=== PATIENT | female | born 1970 | race Caucasian/White ===

== ENCOUNTER → 2016-05-25 | Outpatient (CLI) | payer BC ==
[~2016-05-25] MED LIST: CLR10 PO; MULT-506 PO
--- NOTE | 2016-05-25 16:30 | MAMMOGRAPHY REPORT ---
BILATERAL DIGITAL DIAGNOSTIC MAMMOGRAM TOMOSYNTHESIS WITH CAD: 05/25/2016 CLINICAL HISTORY: 45-year-old woman presents for follow-up in both breasts of probably benign asymme tries identified on the 12/01/2015 exam. TECHNIQUE: Bilateral breast tomosynthesis in addition to standard 2D mammography was performed. Curr ent study was also evaluated with a Computer Aided Detection (CAD) system. COMPARISON: Comparison is made to exams dated: 12/01/2015 ultrasound, 12/01/2015 mammogram, 05/30/19 16 ultrasound, 05/21/2015 mammogram, 05/16/2014 mammogram, and 02/16/2013 mammogram - [facility]. BREAST COMPOSITION: The tissue of both breasts is extremely dense, which lowers the sensitivity of mammography. FINDINGS: The asymmetry in the slightly lateral, posterior right breast on the CC view, in the later al, middle to posterior left breast on the CC view and in the posterior, slightly inferior left [address] on the MLO view are all less conspicuous comparing to the previous mammograms. There is no corre sponding mass or other suspicious abnormality on the tomosynthesis images. Bilateral axillary lymph nodes are stable dating back to at least 05/21/2015, and were previously documented to appear morph ologically normal on ultrasound. No new suspicious mass, architectural distortion or cluster of ru rocalcifications is seen bilaterally. Recommend routine mammography in one year. IMPRESSION: ACR BI-RADS CATEGORY 2: BENIGN Bilateral asymmetries are no longer seen, confirming benignity. There is no mammographic evidence o f malignancy. A 1 year screening mammogram is recommended. The patient has been verbally notified o f the results. Approximately 10% of breast cancers are not detected with mammography. A negative mammographic repor t should not delay biopsy if a clinically suggestive mass is present. Jennifer Greenwood M.D. ay/:05/25/2016 14:47:55 Fac Engineer: Patricia CRUZ)(Ananth), [facility] letter sent: Normal 1/2 BI-RADS Code: ACR BI-RADS Category 2: Benign
== END | disposition home or self-care (01) ==
LOC: C.MAMM 09:33
PROVIDERS: ATTEND Surgery
DX: Z09 Encounter for follow-up examination after completed treatment for conditions other than malignant neoplasm (principal); N64.9 Disorder of breast, unspecified

== ENCOUNTER → 2016-05-25 | Outpatient (CLI) | payer BC | END | disposition home or self-care (01) | LOC: C.PAPS 16:43 | PROVIDERS: ATTEND Obstetrics & Gynecology | DX: Z01.419 Encounter for gynecological examination (general) (routine) without abnormal findings (principal) ==

== ENCOUNTER → 2017-01-20 | Outpatient (CLI) | payer BC ==
--- NOTE | 2017-01-20 14:27 | MAMMOGRAPHY REPORT ---
UNILATERAL RIGHT DIGITAL DIAGNOSTIC MAMMOGRAM TOMOSYNTHESIS WITH CAD AND TARGETED RIGHT ULTRASOUND: 1 03/23/2016 CLINICAL HISTORY: The patient reports intermittent right lateral breast pain for approximately 2 week s, which is currently resolved. She denies any palpable lumps or other complaints. TECHNIQUE: Breast tomosynthesis in addition to standard 2D mammography was performed. Current study was also evaluated with a Computer Aided Detection (CAD) system. Right CC and MLO 2-D and tomosynthe sis images were obtained. COMPARISON: Comparison is made to exams dated: 05/25/2016 mammogram, 12/01/2015 ultrasound, 6 mammogram, 05/30/2015 ultrasound, 05/21/2015 mammogram, and 05/16/2014 mammogram - [facility]. BREAST COMPOSITION: The tissue of the right breast is extremely dense, which lowers the sensitivity of mammography. FINDINGS: There are no suspicious masses, calcifications, or areas of architectural distortion noted in the right breast. There has been no significant interval change mammographically compared to prio r exams. A few scattered benign-appearing calcifications are stable. Targeted ultrasound was performed of the area of prior pain pointed out by the patient, involving the right far lateral breast. Sonographically normal tissue is seen in this region, without evidence of a mass or other suspicious sonographic abnormality. IMPRESSION: ACR BI-RADS CATEGORY 2: BENIGN, TARGETED ULTRASOUND ACR BI-RADS CATEGORY 2: BENIGN No suspicious mammographic or sonographic abnormality to explain intermittent right lateral breast pa in. There is no mammographic or targeted sonographic evidence of malignancy. Recommend clinical fol low-up for right breast pain, and recommend routine bilateral screening mammograms which are due 2017. The patient has been verbally notified of the results. Approximately 10% of breast cancers are not detected with mammography. A negative mammographic report should not delay biopsy if a clinically suggestive mass is present. Carina Guadarrama M.D. /:01/20/2017 09:28:08 Chute Tender: Jennifer CRUZ)(Ananth), [facility] letter sent: Normal /2 BI-RADS Code: ACR BI-RADS Category 2: Benign Ultrasound BI-RADS: ACR BI-RADS Category 2: Benign
== END | disposition home or self-care (01) ==
LOC: C.MAMM 09:03
PROVIDERS: ATTEND Family Medicine
DX: N64.4 Mastodynia (principal)